=== PATIENT | female | born 1955 | race Caucasian/White ===

== ENCOUNTER 2016-09-04 15:40 | Emergency (ER) | payer MEDICARE, OTHER ==
[~2016-09-04 15:40] MED LIST: AMIT50 PO; CO Q-10 PO; CO Q-10100 MG PO; FLEX PO; FLEXERIL PO; FLEXERIL5 MG PO; LEVAQUIN750 MG PO; LEVOTHROID175 MCG PO; LEVOTHYROXIN175 MCG PO; LORT7 PO; MULTIVITAMI1 PO; OYST-CAL500 MG PO; PRILO PO; ULTRAM50 PO; VITAMIN D31000 UNIT PO
== END 2016-09-04 18:29 | disposition home or self-care (01) ==
LOC: ER 15:40
DX: M54.5 Low back pain (principal); E78.00 Pure hypercholesterolemia, unspecified; F17.200 Nicotine dependence, unspecified, uncomplicated; Z85.3 Personal history of malignant neoplasm of breast; Z88.5 Allergy status to narcotic agent; Z79.899 Other long term (current) drug therapy
CPT/HCPCS: 72148; 96372; 99284; J2270